=== PATIENT | male | born 1945 | race Caucasian/White ===

== ENCOUNTER 2021-03-03 20:27 | Inpatient (IN) ==
[2021-03-03 20:57] LABS: Basophils % 0.2 %; Eosinophils % 0.2 %; Hematocrit 44.5 % (37.5-50.1); Hemoglobin 14.8 g/dL (12.9-16.9); Immature Granulocytes % 1.4 % (0-4); Lymphocytes # 0.7 K/mcL (0.6-4.6); Lymphocytes % 5.7 %; Mean Corpuscular HGB Conc 33.3 g/dL (31.6-35.5); Mean Corpuscular Hemoglobin 31.6 pg (28.0-33.3); Mean Corpuscular Volume 95.1 fL (83.0-100.0); Mean Platelet Volume 11.7 fL (9.4-12.4); Monocytes # 0.9 K/mcL (0.0-1.3); Monocytes % 7.2 %; Neutrophils # 10.9 K/mcL (1.6-8.9); Platelet Count 163 K/mcL (140-400); Red Blood Count 4.68 M/mcL (4.19-5.50); Segmented Neutrophils % 85.3 %; White Blood Count 12.8 K/mcL (4.3-11.1)
[2021-03-03 21:05] LABS: INR 1.2; Prothrombin Time 13.4 Seconds (9.4-12.1)
[2021-03-03 21:07] LABS: Activated Partial Thrombo Time 29.4 Seconds (26.0-36.0)
[2021-03-03 21:15] LABS: Troponin I 0.03 ng/mL (< 0.04)
[2021-03-03 21:16] LABS: Alanine Aminotransferase 29 Units/L (7-52); Albumin 4.5 g/dL (3.5-5.7); Albumin/Globulin Ratio 1.8 (1.1-2.2); Alkaline Phosphatase 56 Units/L (34-104); Aspartate Amino Transferase 26 Units/L (13-39); BUN/Creatinine Ratio 18 (6-26); Bilirubin,Total 2.1 mg/dL (0.3-1.0); Blood Urea Nitrogen 20 mg/dL (8-23); Calcium 10.1 mg/dL (8.6-10.3); Carbon Dioxide 34 mEq/L (23-29); Chloride 94 mEq/L (98-107); Globulin 2.5 g/dL (2.4-3.5); Glucose 159 mg/dL (70-105); Magnesium 1.3 mg/dL (1.6-2.6); Osmolality,Calculated 288 (280-300); Phosphorous 3.2 mg/dL (2.7-4.5); Potassium 4.1 mEq/L (3.5-5.1); Sodium 136 mEq/L (136-145); eGFR For African Americans > 60 (> 60); eGFR For Non-African Americans > 60 (> 60)
[2021-03-03] MEDS ORDERED: *HR* LORazepam 2 MG/ML VIAL IVP ONE (21:42)
[2021-03-03] MEDS ORDERED: cefTRIAXone 1,000 MG in 0.9 % Sodium Chloride Mini Bag 100 ML IVPB ONE ×2 (22:25→23:13)
[2021-03-03] MEDS ORDERED: cefTRIAXone 1,000 MG in Water for inj. (sterile) 10 ML IVP ONE (23:00)
[2021-03-03] MEDS ORDERED: Naloxone 0.4 MG/ML INJ IVP PRN (23:13)
[2021-03-03] MEDS: 0.9 % Sodium Chloride 1,000 ML IVC SCH (23:44)
[2021-03-04] MEDS ORDERED: Haloperidol Lactate 5 MG/ML VIAL IVP ONE (00:06)
[2021-03-04] MEDS ORDERED: Ketorolac 30 MG/ML VIAL IVP ONE (00:08)
[2021-03-04 04:53] LABS: Basophils % 0.2 %; Hematocrit 37.4 % (37.5-50.1); Hemoglobin 12.6 g/dL (12.9-16.9); Immature Granulocytes % 0.9 % (0-4); Lymphocytes # 0.7 K/mcL (0.6-4.6); Lymphocytes % 3.8 %; Mean Corpuscular HGB Conc 33.7 g/dL (31.6-35.5); Mean Corpuscular Hemoglobin 31.8 pg (28.0-33.3); Mean Corpuscular Volume 94.4 fL (83.0-100.0); Monocytes # 1.8 K/mcL (0.0-1.3); Monocytes % 9.4 %; Neutrophils # 16.5 K/mcL (1.6-8.9); Platelet Count 144 K/mcL (140-400); Red Blood Count 3.96 M/mcL (4.19-5.50); Segmented Neutrophils % 85.7 %; White Blood Count 19.2 K/mcL (4.3-11.1)
[2021-03-04 05:06] LABS: BUN/Creatinine Ratio 19 (6-26); Blood Urea Nitrogen 24 mg/dL (8-23); Calcium 8.9 mg/dL (8.6-10.3); Carbon Dioxide 29 mEq/L (23-29); Chloride 98 mEq/L (98-107); Glucose 248 mg/dL (70-105); Osmolality,Calculated 292 (280-300); Potassium 3.9 mEq/L (3.5-5.1); Sodium 135 mEq/L (136-145); eGFR For African Americans > 60 (> 60); eGFR For Non-African Americans 55 (> 60)
[2021-03-04] MEDS ORDERED: cefTRIAXone 2,000 MG in Water for inj. (sterile) 20 ML IVP SCH (09:00)
[2021-03-04] MEDS ORDERED: NON-FORMULARY MEDICATION 1 EACH EACH (Omega-3s/Dha/Epa/Fish Oil [Fish Oil 1,200 Mg Softgel PO SCH (09:00)
[2021-03-04] MEDS: *HR* SitaGLIPtin 100 MG TABLET PO SCH (09:43)
[2021-03-04] MEDS: Multivit/Ca/Min/Fe/FA 1 TAB TABLET PO SCH (09:43)
[2021-03-04] MEDS: carvediloL 6.25 MG TABLET PO SCH ×2 (09:43→17:11)
[2021-03-04] MEDS: Furosemide 40 MG TABLET PO SCH (09:43)
[2021-03-04] MEDS: FATTY ACIDS PO SCH (09:44)
[2021-03-04] MEDS: Aspirin 81 MG TAB.CHEW PO SCH ×2 (09:44→20:31)
[2021-03-04] MEDS: OMEGA PO SCH (09:44)
[2021-03-04] MEDS: *HR* Glimepiride 4 MG TABLET PO SCH ×2 (09:44→17:11)
[2021-03-04] MEDS: *HR* Metformin 500 MG TABLET PO SCH ×2 (09:44→17:11)
[2021-03-04 13:12] LABS: Bilirubin,Urine Small (Negative); Blood,Urine Negative (Negative); Clarity,Urine Clear (Clear); Color,Urine Yellow (Yellow); Glucose,Urine (UA) 250 mg/dL (Normal); Ketones,Urine Negative (Negative); Leukocyte Esterase,Urine Negative (Negative); Nitrite,Urine Negative (Negative); Protein,Urine 30 mg/dL (Neg-Trace); Specific Gravity,Urine >= 1.030 (1.010-1.025); Urobilinogen,Urine Normal (Normal)
[2021-03-04 13:17] LABS: Bacteria,Urine Few per hpf (None-Few); Hyaline Casts,Urine Few per lpf (None Seen)
[2021-03-04] MEDS ORDERED: *HR* Dextrose 50 % in Water (Vial) 50 ML VIAL IVP PRN (13:52)
[2021-03-04] MEDS ORDERED: D5% in Water 1,000 ML IVC PRN (13:52)
[2021-03-04] MEDS ORDERED: Dextrose Gel 15 GM/37.5 ML TUBE PO PRN ×2 (13:52)
[2021-03-04] MEDS: Vancomycin 1,250 MG/262.5 ML IV.SOLN IVPB SCH (14:46)
[2021-03-04] MEDS: Piperacillin/Tazobactam 3.375 GM in 0.9 % Sodium Chloride Mini Bag 100 ML IVPB SCH ×2 (16:47→23:35)
[2021-03-04] MEDS: Insulin LISPRO 300 UNITS/3 ML VIAL SUBQ SCH ×2 (17:11→20:32)
[2021-03-05] MEDS: Vancomycin 1,250 MG/262.5 ML IV.SOLN IVPB SCH ×2 (00:26→13:43)
[2021-03-05] MEDS: 0.9 % Sodium Chloride 1,000 ML IVC SCH (02:33)
[2021-03-05 06:26] LABS: Basophils % 0.1 %; Eosinophils % 0.2 %; Hematocrit 33.4 % (37.5-50.1); Immature Granulocytes % 1.3 % (0-4); Lymphocytes # 0.8 K/mcL (0.6-4.6); Lymphocytes % 5.8 %; Mean Corpuscular HGB Conc 32.9 g/dL (31.6-35.5); Mean Corpuscular Hemoglobin 31.5 pg (28.0-33.3); Mean Corpuscular Volume 95.7 fL (83.0-100.0); Mean Platelet Volume 11.9 fL (9.4-12.4); Monocytes # 1.3 K/mcL (0.0-1.3); Monocytes % 9.6 %; Neutrophils # 11.2 K/mcL (1.6-8.9); Platelet Count 122 K/mcL (140-400); Red Blood Count 3.49 M/mcL (4.19-5.50); Red Cell Distribution Width 14.4 % (11.5-14.5); White Blood Count 13.5 K/mcL (4.3-11.1)
[2021-03-05 07:09] LABS: Alanine Aminotransferase 17 Units/L (7-52); Albumin 2.8 g/dL (3.5-5.7); Albumin/Globulin Ratio 1.2 (1.1-2.2); Alkaline Phosphatase 40 Units/L (34-104); Aspartate Amino Transferase 18 Units/L (13-39); BUN/Creatinine Ratio 19 (6-26); Bilirubin,Total 1.4 mg/dL (0.3-1.0); Blood Urea Nitrogen 25 mg/dL (8-23); Calcium 8.3 mg/dL (8.6-10.3); Carbon Dioxide 31 mEq/L (23-29); Chloride 98 mEq/L (98-107); Globulin 2.4 g/dL (2.4-3.5); Glucose 67 mg/dL (70-105); Osmolality,Calculated 285 (280-300); Potassium 3.5 mEq/L (3.5-5.1); Sodium 136 mEq/L (136-145); Total Protein 5.2 g/dL (6.4-8.9); eGFR For African Americans > 60 (> 60); eGFR For Non-African Americans 53 (> 60)
[2021-03-05] MEDS: Multivit/Ca/Min/Fe/FA 1 TAB TABLET PO SCH (09:04)
[2021-03-05] MEDS: Insulin LISPRO 300 UNITS/3 ML VIAL SUBQ SCH ×4 (09:04→20:45)
[2021-03-05] MEDS: Aspirin 81 MG TAB.CHEW PO SCH ×2 (09:05→20:46)
[2021-03-05] MEDS: *HR* Metformin 500 MG TABLET PO SCH ×2 (09:05→16:44)
[2021-03-05] MEDS: *HR* Glimepiride 4 MG TABLET PO SCH ×2 (09:05→16:45)
[2021-03-05] MEDS: *HR* SitaGLIPtin 100 MG TABLET PO SCH (09:06)
[2021-03-05] MEDS: carvediloL 6.25 MG TABLET PO SCH ×2 (09:06→16:45)
[2021-03-05] MEDS: Piperacillin/Tazobactam 3.375 GM in 0.9 % Sodium Chloride Mini Bag 100 ML IVPB SCH ×3 (09:10→23:33)
[2021-03-05 10:06] LABS: Estimated Average Glucose 171 mg/dl; Hemoglobin A1C 7.6 %
[2021-03-05] MEDS: OMEGA PO SCH (11:47)
[2021-03-05] MEDS: FATTY ACIDS PO SCH (11:47)
[2021-03-06] MEDS: Insulin LISPRO 300 UNITS/3 ML VIAL SUBQ SCH ×4 (08:15→22:09)
[2021-03-06] MEDS: Aspirin 81 MG TAB.CHEW PO SCH ×2 (08:57→22:08)
[2021-03-06] MEDS: *HR* Metformin 500 MG TABLET PO SCH ×2 (08:58→16:51)
[2021-03-06] MEDS: Multivit/Ca/Min/Fe/FA 1 TAB TABLET PO SCH (08:58)
[2021-03-06] MEDS: Furosemide 40 MG TABLET PO SCH (08:58)
[2021-03-06] MEDS: *HR* Glimepiride 4 MG TABLET PO SCH ×2 (08:58→16:51)
[2021-03-06] MEDS: carvediloL 6.25 MG TABLET PO SCH ×2 (08:58→16:50)
[2021-03-06] MEDS: *HR* SitaGLIPtin 100 MG TABLET PO SCH (08:58)
[2021-03-06] MEDS: OMEGA PO SCH (08:59)
[2021-03-06] MEDS: Piperacillin/Tazobactam 3.375 GM in 0.9 % Sodium Chloride Mini Bag 100 ML IVPB SCH ×2 (08:59→16:53)
[2021-03-06] MEDS: FATTY ACIDS PO SCH (08:59)
[2021-03-06 11:45] LABS: BUN/Creatinine Ratio 16 (6-26); Blood Urea Nitrogen 17 mg/dL (8-23); Calcium 8.4 mg/dL (8.6-10.3); Carbon Dioxide 27 mEq/L (23-29); Chloride 102 mEq/L (98-107); Glucose 172 mg/dL (70-105); Osmolality,Calculated 288 (280-300); Potassium 3.8 mEq/L (3.5-5.1); Sodium 136 mEq/L (136-145); eGFR For African Americans > 60 (> 60); eGFR For Non-African Americans > 60 (> 60)
[2021-03-06 11:47] LABS: Basophils % 0.1 %; Eosinophils % 0.5 %; Hematocrit 33.5 % (37.5-50.1); Hemoglobin 11.1 g/dL (12.9-16.9); Immature Granulocytes % 1.3 % (0-4); Lymphocytes # 0.6 K/mcL (0.6-4.6); Lymphocytes % 7.4 %; Mean Corpuscular HGB Conc 33.1 g/dL (31.6-35.5); Mean Corpuscular Hemoglobin 31.9 pg (28.0-33.3); Mean Corpuscular Volume 96.3 fL (83.0-100.0); Mean Platelet Volume 11.7 fL (9.4-12.4); Monocytes # 0.6 K/mcL (0.0-1.3); Monocytes % 7.2 %; Neutrophils # 6.7 K/mcL (1.6-8.9); Platelet Count 119 K/mcL (140-400); Red Blood Count 3.48 M/mcL (4.19-5.50); Red Cell Distribution Width 14.3 % (11.5-14.5); Segmented Neutrophils % 83.5 %
[2021-03-07] MEDS: Piperacillin/Tazobactam 3.375 GM in 0.9 % Sodium Chloride Mini Bag 100 ML IVPB SCH ×3 (00:03→17:39)
[2021-03-07 05:58] LABS: Basophils % 0.4 %; Eosinophils # 0.1 K/mcL (0.0-0.6); Eosinophils % 1.1 %; Hematocrit 35.2 % (37.5-50.1); Hemoglobin 11.4 g/dL (12.9-16.9); Immature Granulocytes % 1.8 % (0-4); Lymphocytes # 0.9 K/mcL (0.6-4.6); Lymphocytes % 13.2 %; Mean Corpuscular HGB Conc 32.4 g/dL (31.6-35.5); Mean Corpuscular Hemoglobin 31.5 pg (28.0-33.3); Mean Corpuscular Volume 97.2 fL (83.0-100.0); Mean Platelet Volume 12.1 fL (9.4-12.4); Monocytes # 0.6 K/mcL (0.0-1.3); Monocytes % 8.3 %; Neutrophils # 5.4 K/mcL (1.6-8.9); Platelet Count 136 K/mcL (140-400); Red Blood Count 3.62 M/mcL (4.19-5.50); Segmented Neutrophils % 75.2 %; White Blood Count 7.1 K/mcL (4.3-11.1)
[2021-03-07 06:16] LABS: BUN/Creatinine Ratio 14 (6-26); Blood Urea Nitrogen 15 mg/dL (8-23); Calcium 8.5 mg/dL (8.6-10.3); Carbon Dioxide 31 mEq/L (23-29); Chloride 101 mEq/L (98-107); Glucose 142 mg/dL (70-105); Osmolality,Calculated 289 (280-300); Potassium 3.6 mEq/L (3.5-5.1); Sodium 138 mEq/L (136-145); eGFR For African Americans > 60 (> 60); eGFR For Non-African Americans > 60 (> 60)
[2021-03-07] MEDS: *HR* SitaGLIPtin 100 MG TABLET PO SCH (07:38)
[2021-03-07] MEDS: Multivit/Ca/Min/Fe/FA 1 TAB TABLET PO SCH (07:38)
[2021-03-07] MEDS: *HR* Metformin 500 MG TABLET PO SCH ×2 (07:39→17:40)
[2021-03-07] MEDS: *HR* Glimepiride 4 MG TABLET PO SCH ×2 (07:39→17:39)
[2021-03-07] MEDS: carvediloL 6.25 MG TABLET PO SCH ×2 (07:39→17:39)
[2021-03-07] MEDS: Aspirin 81 MG TAB.CHEW PO SCH ×2 (07:39→21:47)
[2021-03-07] MEDS: FATTY ACIDS PO SCH (07:41)
[2021-03-07] MEDS: OMEGA PO SCH (07:41)
[2021-03-07] MEDS: Insulin LISPRO 300 UNITS/3 ML VIAL SUBQ SCH ×4 (07:41→21:39)
[2021-03-08] MEDS: Piperacillin/Tazobactam 3.375 GM in 0.9 % Sodium Chloride Mini Bag 100 ML IVPB SCH ×3 (00:06→17:25)
[2021-03-08] MEDS: Insulin LISPRO 300 UNITS/3 ML VIAL SUBQ SCH ×4 (08:28→20:33)
[2021-03-08] MEDS: Aspirin 81 MG TAB.CHEW PO SCH ×2 (08:29→20:39)
[2021-03-08] MEDS: carvediloL 6.25 MG TABLET PO SCH ×2 (08:29→17:25)
[2021-03-08] MEDS: Multivit/Ca/Min/Fe/FA 1 TAB TABLET PO SCH (08:29)
[2021-03-08] MEDS: *HR* SitaGLIPtin 100 MG TABLET PO SCH (08:29)
[2021-03-08] MEDS: *HR* Glimepiride 4 MG TABLET PO SCH ×2 (08:31→17:25)
[2021-03-08] MEDS: *HR* Metformin 500 MG TABLET PO SCH ×2 (08:35→17:25)
[2021-03-09] MEDS: Piperacillin/Tazobactam 3.375 GM in 0.9 % Sodium Chloride Mini Bag 100 ML IVPB SCH ×4 (00:10→23:51)
[2021-03-09] MEDS: Vancomycin 1,750 MG/517.5 ML IV.SOLN IVPB SCH (00:44)
[2021-03-09 04:52] LABS: eGFR For African Americans > 60 (> 60); eGFR For Non-African Americans > 60 (> 60)
[2021-03-09] MEDS: Furosemide 40 MG TABLET PO SCH (09:27)
[2021-03-09] MEDS: Aspirin 81 MG TAB.CHEW PO SCH ×2 (09:27→21:34)
[2021-03-09] MEDS: Multivit/Ca/Min/Fe/FA 1 TAB TABLET PO SCH (09:27)
[2021-03-09] MEDS: *HR* SitaGLIPtin 100 MG TABLET PO SCH (09:27)
[2021-03-09] MEDS: carvediloL 6.25 MG TABLET PO SCH ×2 (09:27→17:44)
[2021-03-09] MEDS: *HR* Metformin 500 MG TABLET PO SCH ×2 (09:28→17:43)
[2021-03-09] MEDS: Insulin LISPRO 300 UNITS/3 ML VIAL SUBQ SCH ×4 (09:28→21:32)
[2021-03-09] MEDS: *HR* Glimepiride 4 MG TABLET PO SCH ×2 (09:28→17:43)
[2021-03-10] MEDS: Vancomycin 1,750 MG/517.5 ML IV.SOLN IVPB SCH (00:52)
[2021-03-10] MEDS: Insulin LISPRO 300 UNITS/3 ML VIAL SUBQ SCH ×2 (09:34→11:58)
[2021-03-10] MEDS: Piperacillin/Tazobactam 3.375 GM in 0.9 % Sodium Chloride Mini Bag 100 ML IVPB SCH (09:35)
[2021-03-10] MEDS: *HR* Metformin 500 MG TABLET PO SCH (09:36)
[2021-03-10] MEDS: *HR* SitaGLIPtin 100 MG TABLET PO SCH (09:36)
[2021-03-10] MEDS: Aspirin 81 MG TAB.CHEW PO SCH (09:36)
[2021-03-10] MEDS: Multivit/Ca/Min/Fe/FA 1 TAB TABLET PO SCH (09:36)
[2021-03-10] MEDS: *HR* Glimepiride 4 MG TABLET PO SCH (09:37)
[2021-03-10] MEDS: carvediloL 6.25 MG TABLET PO SCH (09:37)
[2021-03-10 11:11] VITALS: BP 113/51; PULSE 99; RESP 17; TEMP 97.9; O2SAT 97
== END 2021-03-10 14:04 | disposition other institution (70) | DRG 603 ==
LOC: EMEROOGRE 20:27 → INPGRE 20:27 → SUATTDRO 22:59 → INPGRE 23:13
PROVIDERS: ADMIT Student in an Organized Health Care Education/Training Program; ATTEND Family Medicine

== ENCOUNTER 2021-03-10 14:29 | Inpatient (IN) ==
[2021-03-10] MEDS ORDERED: *HR* Dextrose 50 % in Water (Vial) 50 ML VIAL IVP PRN (15:56)
[2021-03-10] MEDS ORDERED: Dextrose Gel 15 GM/37.5 ML TUBE PO PRN ×2 (15:56)
[2021-03-10] MEDS ORDERED: D5% in Water 1,000 ML IVC PRN (15:56)
[2021-03-10] MEDS: *HR* Metformin 500 MG TABLET PO SCH (17:45)
[2021-03-10] MEDS: carvediloL 6.25 MG TABLET PO SCH (17:45)
[2021-03-10] MEDS: *HR* Glimepiride 4 MG TABLET PO SCH (17:45)
[2021-03-10] MEDS: Piperacillin/Tazobactam 3.375 GM in 0.9 % Sodium Chloride Mini Bag 100 ML IVPB SCH (17:45)
[2021-03-10] MEDS: Insulin LISPRO 300 UNITS/3 ML VIAL SUBQ SCH ×2 (17:47→21:20)
[2021-03-10] MEDS: Aspirin Enteric Coated 81 MG Tablet PO SCH (21:23)
[2021-03-11] MEDS: Piperacillin/Tazobactam 3.375 GM in 0.9 % Sodium Chloride Mini Bag 100 ML IVPB SCH ×3 (00:53→16:39)
[2021-03-11] MEDS: Vancomycin 1,750 MG/517.5 ML IV.SOLN IVPB SCH (00:58)
[2021-03-11] MEDS: Insulin LISPRO 300 UNITS/3 ML VIAL SUBQ SCH ×4 (07:31→21:13)
[2021-03-11] MEDS: (Omega-3s/Dha/Epa/Fish Oil [Fish Oil 1,200 Mg Softgel PO SCH (08:27)
[2021-03-11] MEDS: *HR* Glimepiride 4 MG TABLET PO SCH ×2 (08:28→16:40)
[2021-03-11] MEDS: Aspirin Enteric Coated 81 MG Tablet PO SCH ×2 (08:28→21:21)
[2021-03-11] MEDS: *HR* Metformin 500 MG TABLET PO SCH ×2 (08:28→16:40)
[2021-03-11] MEDS: *HR* SitaGLIPtin 100 MG TABLET PO SCH (08:28)
[2021-03-11] MEDS: carvediloL 6.25 MG TABLET PO SCH ×2 (08:29→16:39)
[2021-03-11] MEDS: Furosemide 40 MG TABLET PO SCH (08:29)
[2021-03-11] MEDS: Multivit/Ca/Min/Fe/FA 1 TAB TABLET PO SCH (08:29)
[2021-03-12] MEDS: Piperacillin/Tazobactam 3.375 GM in 0.9 % Sodium Chloride Mini Bag 100 ML IVPB SCH ×2 (00:16→08:22)
[2021-03-12] MEDS: Vancomycin 1,750 MG/517.5 ML IV.SOLN IVPB SCH (00:19)
[2021-03-12 05:36] LABS: BUN/Creatinine Ratio 16 (6-26); Blood Urea Nitrogen 14 mg/dL (8-23); Calcium 8.1 mg/dL (8.6-10.3); Carbon Dioxide 31 mEq/L (23-29); Chloride 103 mEq/L (98-107); Glucose 105 mg/dL (70-105); Magnesium 1.5 mg/dL (1.6-2.6); Osmolality,Calculated 289 (280-300); Potassium 3.8 mEq/L (3.5-5.1); Sodium 139 mEq/L (136-145); eGFR For African Americans > 60 (> 60); eGFR For Non-African Americans > 60 (> 60)
[2021-03-12 05:38] LABS: Hematocrit 28.2 % (37.5-50.1); Mean Corpuscular HGB Conc 31.9 g/dL (31.6-35.5); Mean Corpuscular Volume 97.2 fL (83.0-100.0); Mean Platelet Volume 10.9 fL (9.4-12.4); Red Cell Distribution Width 13.5 % (11.5-14.5); White Blood Count 6.4 K/mcL (4.3-11.1)
[2021-03-12 05:50] LABS: Platelet Count 208 K/mcL (140-400)
[2021-03-12] MEDS: Aspirin Enteric Coated 81 MG Tablet PO SCH ×2 (08:21→22:05)
[2021-03-12] MEDS: *HR* Metformin 500 MG TABLET PO SCH ×2 (08:21→17:07)
[2021-03-12] MEDS: carvediloL 6.25 MG TABLET PO SCH ×2 (08:21→17:07)
[2021-03-12] MEDS: *HR* SitaGLIPtin 100 MG TABLET PO SCH (08:22)
[2021-03-12] MEDS: Multivit/Ca/Min/Fe/FA 1 TAB TABLET PO SCH (08:22)
[2021-03-12] MEDS: *HR* Glimepiride 4 MG TABLET PO SCH ×2 (08:22→17:12)
[2021-03-12] MEDS: Insulin LISPRO 300 UNITS/3 ML VIAL SUBQ SCH ×4 (08:27→21:56)
[2021-03-12] MEDS: (Omega-3s/Dha/Epa/Fish Oil [Fish Oil 1,200 Mg Softgel PO SCH (08:50)
[2021-03-12] MEDS: Doxycycline 100 MG CAPSULE PO SCH (17:07)
[2021-03-13] MEDS: Doxycycline 100 MG CAPSULE PO SCH ×2 (06:43→22:47)
[2021-03-13] MEDS: Furosemide 40 MG TABLET PO SCH (08:47)
[2021-03-13] MEDS: carvediloL 6.25 MG TABLET PO SCH ×2 (08:47→17:16)
[2021-03-13] MEDS: *HR* Metformin 500 MG TABLET PO SCH ×2 (08:48→17:16)
[2021-03-13] MEDS: Multivit/Ca/Min/Fe/FA 1 TAB TABLET PO SCH (08:48)
[2021-03-13] MEDS: *HR* Glimepiride 4 MG TABLET PO SCH ×2 (08:48→17:16)
[2021-03-13] MEDS: *HR* SitaGLIPtin 100 MG TABLET PO SCH (08:48)
[2021-03-13] MEDS: Aspirin Enteric Coated 81 MG Tablet PO SCH ×2 (08:48→22:47)
[2021-03-13] MEDS: Insulin LISPRO 300 UNITS/3 ML VIAL SUBQ SCH ×4 (08:53→22:50)
[2021-03-14 05:56] LABS: Basophils # 0.1 K/mcL (0.0-0.2); Eosinophils # 0.1 K/mcL (0.0-0.6); Hematocrit 28.7 % (37.5-50.1); Hemoglobin 9.1 g/dL (12.9-16.9); Immature Granulocytes % 1.7 % (0-4); Mean Corpuscular HGB Conc 31.7 g/dL (31.6-35.5); Mean Corpuscular Hemoglobin 31.1 pg (28.0-33.3); Mean Platelet Volume 10.8 fL (9.4-12.4); Monocytes # 0.6 K/mcL (0.0-1.3); Neutrophils # 3.7 K/mcL (1.6-8.9); Platelet Count 238 K/mcL (140-400); Red Blood Count 2.93 M/mcL (4.19-5.50); Red Cell Distribution Width 13.4 % (11.5-14.5); White Blood Count 5.9 K/mcL (4.3-11.1)
[2021-03-14 06:11] LABS: BUN/Creatinine Ratio 14 (6-26); Blood Urea Nitrogen 11 mg/dL (8-23); Calcium 8.4 mg/dL (8.6-10.3); Carbon Dioxide 32 mEq/L (23-29); Chloride 101 mEq/L (98-107); Glucose 81 mg/dL (70-105); Osmolality,Calculated 288 (280-300); Potassium 3.6 mEq/L (3.5-5.1); Sodium 140 mEq/L (136-145); eGFR For African Americans > 60 (> 60); eGFR For Non-African Americans > 60 (> 60)
[2021-03-14] MEDS: Doxycycline 100 MG CAPSULE PO SCH ×2 (06:29→16:48)
[2021-03-14 08:26] LABS: Platelet Estimate Normal (Normal); Reactive Lymphocytes Present (Not Present)
[2021-03-14] MEDS: Insulin LISPRO 300 UNITS/3 ML VIAL SUBQ SCH ×4 (08:33→21:09)
[2021-03-14 09:08] LABS: Basophils % 0.9 %; Eosinophils % 1.5 %; Lymphocytes # 1.5 K/mcL (0.6-4.6); Lymphocytes % 24.5 %; Monocytes % 9.4 %
[2021-03-14] MEDS: *HR* SitaGLIPtin 100 MG TABLET PO SCH (09:11)
[2021-03-14] MEDS: Multivit/Ca/Min/Fe/FA 1 TAB TABLET PO SCH (09:11)
[2021-03-14] MEDS: Aspirin Enteric Coated 81 MG Tablet PO SCH ×2 (09:11→21:09)
[2021-03-14] MEDS: *HR* Metformin 500 MG TABLET PO SCH ×2 (09:11→16:48)
[2021-03-14] MEDS: carvediloL 6.25 MG TABLET PO SCH ×2 (09:11→16:49)
[2021-03-14] MEDS: *HR* Glimepiride 4 MG TABLET PO SCH ×2 (09:12→16:48)
[2021-03-15] MEDS: Doxycycline 100 MG CAPSULE PO SCH ×2 (04:51→17:24)
[2021-03-15] MEDS: Multivit/Ca/Min/Fe/FA 1 TAB TABLET PO SCH (08:22)
[2021-03-15] MEDS: *HR* Metformin 500 MG TABLET PO SCH ×2 (08:22→17:24)
[2021-03-15] MEDS: Aspirin Enteric Coated 81 MG Tablet PO SCH ×2 (08:24→20:04)
[2021-03-15] MEDS: carvediloL 6.25 MG TABLET PO SCH ×2 (08:25→17:23)
[2021-03-15] MEDS: *HR* Glimepiride 4 MG TABLET PO SCH ×2 (08:25→17:24)
[2021-03-15] MEDS: *HR* SitaGLIPtin 100 MG TABLET PO SCH (08:25)
[2021-03-15] MEDS: Insulin LISPRO 300 UNITS/3 ML VIAL SUBQ SCH ×4 (08:31→20:01)
[2021-03-16] MEDS: Doxycycline 100 MG CAPSULE PO SCH ×2 (06:25→17:30)
[2021-03-16] MEDS: Insulin LISPRO 300 UNITS/3 ML VIAL SUBQ SCH ×4 (08:43→20:24)
[2021-03-16] MEDS: *HR* SitaGLIPtin 100 MG TABLET PO SCH (08:50)
[2021-03-16] MEDS: carvediloL 6.25 MG TABLET PO SCH ×2 (08:50→17:29)
[2021-03-16] MEDS: Multivit/Ca/Min/Fe/FA 1 TAB TABLET PO SCH (08:50)
[2021-03-16] MEDS: *HR* Glimepiride 4 MG TABLET PO SCH ×2 (08:50→17:29)
[2021-03-16] MEDS: Aspirin Enteric Coated 81 MG Tablet PO SCH ×2 (08:50→20:23)
[2021-03-16] MEDS: Furosemide 40 MG TABLET PO SCH (08:50)
[2021-03-16] MEDS: *HR* Metformin 500 MG TABLET PO SCH ×2 (08:50→17:30)
[2021-03-17] MEDS: Doxycycline 100 MG CAPSULE PO SCH ×2 (05:35→16:08)
[2021-03-17] MEDS: Aspirin Enteric Coated 81 MG Tablet PO SCH ×2 (08:02→20:30)
[2021-03-17] MEDS: Multivit/Ca/Min/Fe/FA 1 TAB TABLET PO SCH (08:03)
[2021-03-17] MEDS: *HR* Glimepiride 4 MG TABLET PO SCH ×2 (08:03→16:08)
[2021-03-17] MEDS: *HR* Metformin 500 MG TABLET PO SCH ×2 (08:03→16:08)
[2021-03-17] MEDS: *HR* SitaGLIPtin 100 MG TABLET PO SCH (08:03)
[2021-03-17] MEDS: carvediloL 6.25 MG TABLET PO SCH ×2 (08:03→16:08)
[2021-03-17] MEDS: Insulin LISPRO 300 UNITS/3 ML VIAL SUBQ SCH ×3 (12:32→21:50)
[2021-03-18] MEDS: Doxycycline 100 MG CAPSULE PO SCH ×2 (04:26→17:25)
[2021-03-18 05:07] LABS: White Blood Count 5.1 K/mcL (4.3-11.1)
[2021-03-18 05:08] LABS: Basophils # 0.1 K/mcL (0.0-0.2); Basophils % 1.2 %; Eosinophils # 0.1 K/mcL (0.0-0.6); Eosinophils % 1.6 %; Immature Granulocytes % 1.8 % (0-4); Lymphocytes # 1.5 K/mcL (0.6-4.6); Lymphocytes % 30.5 %; Mean Corpuscular HGB Conc 32.1 g/dL (31.6-35.5); Mean Corpuscular Hemoglobin 30.8 pg (28.0-33.3); Mean Corpuscular Volume 95.9 fL (83.0-100.0); Mean Platelet Volume 10.7 fL (9.4-12.4); Monocytes # 0.6 K/mcL (0.0-1.3); Monocytes % 11.9 %; Neutrophils # 2.7 K/mcL (1.6-8.9); Platelet Count 241 K/mcL (140-400); Red Blood Count 2.92 M/mcL (4.19-5.50); Red Cell Distribution Width 13.6 % (11.5-14.5)
[2021-03-18 05:13] LABS: Platelet Estimate Normal (Normal)
[2021-03-18 05:20] LABS: BUN/Creatinine Ratio 17 (6-26); Blood Urea Nitrogen 14 mg/dL (8-23); Calcium 8.7 mg/dL (8.6-10.3); Carbon Dioxide 30 mEq/L (23-29); Chloride 101 mEq/L (98-107); Glucose 70 mg/dL (70-105); Osmolality,Calculated 283 (280-300); Potassium 3.7 mEq/L (3.5-5.1); Sodium 137 mEq/L (136-145); eGFR For African Americans > 60 (> 60); eGFR For Non-African Americans > 60 (> 60)
[2021-03-18] MEDS: Aspirin Enteric Coated 81 MG Tablet PO SCH ×2 (08:28→21:28)
[2021-03-18] MEDS: Insulin LISPRO 300 UNITS/3 ML VIAL SUBQ SCH ×4 (08:28→21:28)
[2021-03-18] MEDS: Multivit/Ca/Min/Fe/FA 1 TAB TABLET PO SCH (08:29)
[2021-03-18] MEDS: *HR* Metformin 500 MG TABLET PO SCH ×2 (08:29→17:25)
[2021-03-18] MEDS: *HR* SitaGLIPtin 100 MG TABLET PO SCH (08:29)
[2021-03-18] MEDS: carvediloL 6.25 MG TABLET PO SCH ×2 (08:29→17:25)
[2021-03-18] MEDS: *HR* Glimepiride 4 MG TABLET PO SCH ×2 (08:30→17:26)
[2021-03-18] MEDS: Furosemide 40 MG TABLET PO SCH (08:30)
[2021-03-19] MEDS: Doxycycline 100 MG CAPSULE PO SCH ×2 (05:30→16:24)
[2021-03-19] MEDS: Aspirin Enteric Coated 81 MG Tablet PO SCH ×2 (06:48→21:50)
[2021-03-19] MEDS: *HR* Metformin 500 MG TABLET PO SCH ×2 (06:49→16:24)
[2021-03-19] MEDS: *HR* Glimepiride 4 MG TABLET PO SCH ×2 (06:49→16:24)
[2021-03-19] MEDS: Multivit/Ca/Min/Fe/FA 1 TAB TABLET PO SCH (06:49)
[2021-03-19] MEDS: *HR* SitaGLIPtin 100 MG TABLET PO SCH (06:49)
[2021-03-19] MEDS: carvediloL 6.25 MG TABLET PO SCH ×2 (06:50→16:24)
[2021-03-19] MEDS: EPA PO SCH (06:51)
[2021-03-19] MEDS: DHA PO SCH (06:51)
[2021-03-19] MEDS: FISH OIL PO SCH (06:51)
[2021-03-19] MEDS: Insulin LISPRO 300 UNITS/3 ML VIAL SUBQ SCH ×4 (08:32→21:29)
[2021-03-20] MEDS: Doxycycline 100 MG CAPSULE PO SCH (05:34)
[2021-03-20 06:59] VITALS: BP 106/58; PULSE 72; RESP 17; TEMP 98.4; O2SAT 95
[2021-03-20] MEDS: *HR* Glimepiride 4 MG TABLET PO SCH (07:58)
[2021-03-20] MEDS: carvediloL 6.25 MG TABLET PO SCH (07:58)
[2021-03-20] MEDS: *HR* SitaGLIPtin 100 MG TABLET PO SCH (07:58)
[2021-03-20] MEDS: Multivit/Ca/Min/Fe/FA 1 TAB TABLET PO SCH (07:58)
[2021-03-20] MEDS: Aspirin Enteric Coated 81 MG Tablet PO SCH (07:59)
[2021-03-20] MEDS: DHA PO SCH (07:59)
[2021-03-20] MEDS: EPA PO SCH (07:59)
[2021-03-20] MEDS: FISH OIL PO SCH (07:59)
[2021-03-20] MEDS: Insulin LISPRO 300 UNITS/3 ML VIAL SUBQ SCH ×2 (07:59→11:53)
[2021-03-20] MEDS: *HR* Metformin 500 MG TABLET PO SCH (07:59)
[2021-03-20] MEDS: Furosemide 40 MG TABLET PO SCH (07:59)
== END 2021-03-20 14:12 | disposition home health service (06) | DRG 945 ==
LOC: INPGRE 14:45
PROVIDERS: ADMIT Family Medicine; ATTEND Family Medicine

== ENCOUNTER 2021-09-02 10:20 | Inpatient (IN) ==
[2021-09-02] MEDS: carvediloL 6.25 MG TABLET PO SCH (17:15)
[2021-09-02] MEDS: *HR* Rivaroxaban 10 MG TABLET PO SCH (17:15)
[2021-09-02] MEDS ORDERED: *HR* Amiodarone 200 MG TABLET PO SCH (21:00)
[2021-09-02] MEDS: Melatonin 3 MG TABLET PO SCH (21:23)
[2021-09-02] MEDS ORDERED: Dextrose Gel 15 GM/37.5 ML TUBE PO PRN ×2 (21:37)
[2021-09-02] MEDS ORDERED: D5% in Water 1,000 ML IVC PRN (21:37)
[2021-09-02] MEDS ORDERED: *HR* Dextrose 50 % in Water (Syg) 50 ML SYRINGE IVP PRN (21:37)
[2021-09-02] MEDS: Insulin LISPRO 300 UNITS/3 ML VIAL SUBQ SCH (22:14)
[2021-09-02] MEDS: Nystatin POWDER 30 GM BOTTLE TP SCH (22:15)
[2021-09-03 07:35] LABS: Basophils % 0.9 %; Eosinophils # 0.3 K/mcL (0.0-0.6); Eosinophils % 5.7 %; Hematocrit 30.3 % (37.5-50.1); Hemoglobin 9.6 g/dL (12.9-16.9); Immature Granulocytes % 0.9 % (0-4); Lymphocytes # 0.9 K/mcL (0.6-4.6); Mean Corpuscular HGB Conc 31.7 g/dL (31.6-35.5); Mean Corpuscular Hemoglobin 30.6 pg (28.0-33.3); Mean Corpuscular Volume 96.5 fL (83.0-100.0); Mean Platelet Volume 9.8 fL (9.4-12.4); Monocytes # 0.5 K/mcL (0.0-1.3); Monocytes % 11.2 %; Neutrophils # 2.8 K/mcL (1.6-8.9); Platelet Count 150 K/mcL (140-400); Red Blood Count 3.14 M/mcL (4.19-5.50); Red Cell Distribution Width 16.7 % (11.5-14.5); Segmented Neutrophils % 61.3 %; White Blood Count 4.6 K/mcL (4.3-11.1)
[2021-09-03] MEDS: Insulin LISPRO 300 UNITS/3 ML VIAL SUBQ SCH ×4 (08:02→22:48)
[2021-09-03 08:08] LABS: Alanine Aminotransferase 29 Units/L (7-52); Albumin 3.7 g/dL (3.5-5.7); Albumin/Globulin Ratio 1.9 (1.1-2.2); Alkaline Phosphatase 52 Units/L (34-104); Aspartate Amino Transferase 29 Units/L (13-39); BUN/Creatinine Ratio 18 (6-26); Bilirubin,Total 1.2 mg/dL (0.3-1.0); Blood Urea Nitrogen 21 mg/dL (8-23); Calcium 9.2 mg/dL (8.6-10.3); Carbon Dioxide 31 mEq/L (23-29); Chloride 100 mEq/L (98-107); Glucose 148 mg/dL (70-105); Magnesium 1.8 mg/dL (1.6-2.6); Osmolality,Calculated 294 (280-300); Potassium 3.4 mEq/L (3.5-5.1); Sodium 139 mEq/L (136-145); Total Protein 5.7 g/dL (6.4-8.9); eGFR For African Americans > 60 (> 60); eGFR For Non-African Americans 59 (> 60)
[2021-09-03] MEDS: Furosemide 40 MG TABLET PO SCH (10:21)
[2021-09-03] MEDS: *HR* Metformin 500 MG TABLET PO SCH (10:21)
[2021-09-03] MEDS: carvediloL 6.25 MG TABLET PO SCH ×2 (10:21→17:23)
[2021-09-03] MEDS: Aspirin 81 MG TAB.CHEW PO SCH (10:21)
[2021-09-03] MEDS: *HR* SitaGLIPtin 100 MG TABLET PO SCH (10:21)
[2021-09-03] MEDS: *HR* Glimepiride 4 MG TABLET PO SCH (10:22)
[2021-09-03] MEDS: *HR* Amiodarone 200 MG TABLET PO SCH (10:22)
[2021-09-03] MEDS: Nystatin POWDER 30 GM BOTTLE TP SCH ×2 (10:22→22:50)
[2021-09-03 15:47] LABS: Estimated Average Glucose 128 mg/dl; Hemoglobin A1C 6.1 %
[2021-09-03] MEDS: *HR* Rivaroxaban 10 MG TABLET PO SCH (17:22)
[2021-09-03] MEDS: Melatonin 3 MG TABLET PO SCH (22:47)
[2021-09-04] MEDS: Insulin LISPRO 300 UNITS/3 ML VIAL SUBQ SCH ×4 (07:31→20:55)
[2021-09-04] MEDS: *HR* Metformin 500 MG TABLET PO SCH (09:27)
[2021-09-04] MEDS: *HR* SitaGLIPtin 100 MG TABLET PO SCH (09:28)
[2021-09-04] MEDS: carvediloL 6.25 MG TABLET PO SCH ×2 (09:28→17:05)
[2021-09-04] MEDS: Furosemide 40 MG TABLET PO SCH (09:29)
[2021-09-04] MEDS: *HR* Glimepiride 4 MG TABLET PO SCH (09:30)
[2021-09-04] MEDS: Aspirin 81 MG TAB.CHEW PO SCH (09:30)
[2021-09-04] MEDS: Nystatin POWDER 30 GM BOTTLE TP SCH ×2 (09:38→20:49)
[2021-09-04] MEDS: *HR* Amiodarone 200 MG TABLET PO SCH (09:53)
[2021-09-04] MEDS: polyethylene glycoL 3350 17 GM POWD.PACK PO SCH (10:51)
[2021-09-04] MEDS: *HR* Rivaroxaban 10 MG TABLET PO SCH (17:05)
[2021-09-04] MEDS: Melatonin 3 MG TABLET PO SCH (20:50)
[2021-09-05] MEDS: polyethylene glycoL 3350 17 GM POWD.PACK PO SCH (07:46)
[2021-09-05] MEDS: Aspirin 81 MG TAB.CHEW PO SCH (07:47)
[2021-09-05] MEDS: carvediloL 6.25 MG TABLET PO SCH ×2 (07:47→17:48)
[2021-09-05] MEDS: *HR* Glimepiride 4 MG TABLET PO SCH (07:50)
[2021-09-05] MEDS: *HR* SitaGLIPtin 100 MG TABLET PO SCH (07:50)
[2021-09-05] MEDS: *HR* Metformin 500 MG TABLET PO SCH (07:50)
[2021-09-05] MEDS: Furosemide 40 MG TABLET PO SCH (07:50)
[2021-09-05] MEDS: *HR* Amiodarone 200 MG TABLET PO SCH (07:51)
[2021-09-05] MEDS: Insulin LISPRO 300 UNITS/3 ML VIAL SUBQ SCH ×3 (11:04→22:50)
[2021-09-05] MEDS: *HR* Rivaroxaban 10 MG TABLET PO SCH (17:48)
[2021-09-05] MEDS: Nystatin POWDER 30 GM BOTTLE TP SCH ×2 (18:05)
[2021-09-05] MEDS: Melatonin 3 MG TABLET PO SCH (22:49)
[2021-09-06] MEDS: Insulin LISPRO 300 UNITS/3 ML VIAL SUBQ SCH ×4 (08:01→22:36)
[2021-09-06] MEDS: carvediloL 6.25 MG TABLET PO SCH ×2 (08:11→17:39)
[2021-09-06] MEDS: *HR* Amiodarone 200 MG TABLET PO SCH (08:11)
[2021-09-06] MEDS: Furosemide 40 MG TABLET PO SCH (08:12)
[2021-09-06] MEDS: *HR* SitaGLIPtin 100 MG TABLET PO SCH (08:12)
[2021-09-06] MEDS: Aspirin 81 MG TAB.CHEW PO SCH (08:12)
[2021-09-06] MEDS: *HR* Metformin 500 MG TABLET PO SCH (08:12)
[2021-09-06] MEDS: *HR* Glimepiride 4 MG TABLET PO SCH (08:12)
[2021-09-06] MEDS: polyethylene glycoL 3350 17 GM POWD.PACK PO SCH (08:12)
[2021-09-06] MEDS: Nystatin POWDER 30 GM BOTTLE TP SCH ×2 (08:13→22:35)
[2021-09-06] MEDS: *HR* Rivaroxaban 10 MG TABLET PO SCH (17:39)
[2021-09-06] MEDS: Melatonin 3 MG TABLET PO SCH (22:36)
[2021-09-07 05:12] LABS: Eosinophils # 0.2 K/mcL (0.0-0.6); Eosinophils % 4.6 %; Hemoglobin 9.8 g/dL (12.9-16.9); Lymphocytes # 0.9 K/mcL (0.6-4.6); Lymphocytes % 22.8 %; Mean Corpuscular HGB Conc 31.6 g/dL (31.6-35.5); Mean Corpuscular Hemoglobin 30.6 pg (28.0-33.3); Mean Corpuscular Volume 96.9 fL (83.0-100.0); Mean Platelet Volume 10.3 fL (9.4-12.4); Monocytes # 0.4 K/mcL (0.0-1.3); Monocytes % 8.9 %; Neutrophils # 2.4 K/mcL (1.6-8.9); Platelet Count 147 K/mcL (140-400); Red Cell Distribution Width 16.6 % (11.5-14.5); Segmented Neutrophils % 61.7 %; White Blood Count 3.9 K/mcL (4.3-11.1)
[2021-09-07 05:26] LABS: BUN/Creatinine Ratio 21 (6-26); Blood Urea Nitrogen 25 mg/dL (8-23); Calcium 9.7 mg/dL (8.6-10.3); Carbon Dioxide 30 mEq/L (23-29); Chloride 102 mEq/L (98-107); Glucose 156 mg/dL (70-105); Osmolality,Calculated 296 (280-300); Potassium 3.9 mEq/L (3.5-5.1); Sodium 139 mEq/L (136-145); eGFR For African Americans > 60 (> 60); eGFR For Non-African Americans 59 (> 60)
[2021-09-07] MEDS: Aspirin 81 MG TAB.CHEW PO SCH (10:25)
[2021-09-07] MEDS: *HR* Glimepiride 4 MG TABLET PO SCH (10:25)
[2021-09-07] MEDS: Insulin LISPRO 300 UNITS/3 ML VIAL SUBQ SCH ×4 (10:26→21:26)
[2021-09-07] MEDS: *HR* Metformin 500 MG TABLET PO SCH (10:26)
[2021-09-07] MEDS: *HR* SitaGLIPtin 100 MG TABLET PO SCH (10:26)
[2021-09-07] MEDS: *HR* Amiodarone 200 MG TABLET PO SCH (10:26)
[2021-09-07] MEDS: Furosemide 40 MG TABLET PO SCH (10:26)
[2021-09-07] MEDS: carvediloL 6.25 MG TABLET PO SCH ×2 (10:26→17:14)
[2021-09-07] MEDS: polyethylene glycoL 3350 17 GM POWD.PACK PO SCH (10:27)
[2021-09-07] MEDS: Nystatin POWDER 30 GM BOTTLE TP SCH ×2 (10:27→21:25)
[2021-09-07] MEDS: *HR* Rivaroxaban 10 MG TABLET PO SCH (17:14)
[2021-09-07] MEDS: Melatonin 3 MG TABLET PO SCH (21:25)
[2021-09-08] MEDS: *HR* Metformin 500 MG TABLET PO SCH (07:19)
[2021-09-08] MEDS: Insulin LISPRO 300 UNITS/3 ML VIAL SUBQ SCH ×4 (07:19→20:13)
[2021-09-08] MEDS: *HR* Glimepiride 4 MG TABLET PO SCH (07:19)
[2021-09-08] MEDS: polyethylene glycoL 3350 17 GM POWD.PACK PO SCH (07:20)
[2021-09-08] MEDS: *HR* SitaGLIPtin 100 MG TABLET PO SCH (07:20)
[2021-09-08] MEDS: Aspirin 81 MG TAB.CHEW PO SCH (08:07)
[2021-09-08] MEDS: carvediloL 6.25 MG TABLET PO SCH ×2 (08:08→16:33)
[2021-09-08] MEDS: Furosemide 40 MG TABLET PO SCH (08:08)
[2021-09-08] MEDS: *HR* Amiodarone 200 MG TABLET PO SCH (08:08)
[2021-09-08] MEDS: Nystatin POWDER 30 GM BOTTLE TP SCH ×2 (08:11→20:45)
[2021-09-08] MEDS: *HR* Rivaroxaban 10 MG TABLET PO SCH (16:33)
[2021-09-08] MEDS: Melatonin 3 MG TABLET PO SCH (20:45)
[2021-09-09] MEDS: *HR* Metformin 500 MG TABLET PO SCH (07:57)
[2021-09-09] MEDS: *HR* SitaGLIPtin 100 MG TABLET PO SCH (07:57)
[2021-09-09] MEDS: Furosemide 40 MG TABLET PO SCH (07:57)
[2021-09-09] MEDS: carvediloL 6.25 MG TABLET PO SCH ×2 (07:57→15:38)
[2021-09-09] MEDS: *HR* Glimepiride 4 MG TABLET PO SCH (07:57)
[2021-09-09] MEDS: Aspirin 81 MG TAB.CHEW PO SCH (07:58)
[2021-09-09] MEDS: *HR* Amiodarone 200 MG TABLET PO SCH (07:58)
[2021-09-09] MEDS: Insulin LISPRO 300 UNITS/3 ML VIAL SUBQ SCH ×4 (07:58→20:07)
[2021-09-09] MEDS: polyethylene glycoL 3350 17 GM POWD.PACK PO SCH (07:59)
[2021-09-09] MEDS: Nystatin POWDER 30 GM BOTTLE TP SCH ×2 (07:59→20:07)
[2021-09-09] MEDS: *HR* Rivaroxaban 10 MG TABLET PO SCH (15:38)
[2021-09-09] MEDS: Melatonin 3 MG TABLET PO SCH (20:08)
[2021-09-10 06:11] LABS: Hemoglobin 9.5 g/dL (12.9-16.9); Mean Corpuscular HGB Conc 31.7 g/dL (31.6-35.5); Mean Corpuscular Hemoglobin 30.5 pg (28.0-33.3); Mean Corpuscular Volume 96.5 fL (83.0-100.0); Mean Platelet Volume 11.2 fL (9.4-12.4); Platelet Count 148 K/mcL (140-400); Red Blood Count 3.11 M/mcL (4.19-5.50); Red Cell Distribution Width 16.6 % (11.5-14.5); White Blood Count 3.9 K/mcL (4.3-11.1)
[2021-09-10 06:22] LABS: Alanine Aminotransferase 20 Units/L (7-52); Albumin 3.7 g/dL (3.5-5.7); Albumin/Globulin Ratio 1.8 (1.1-2.2); Alkaline Phosphatase 49 Units/L (34-104); Aspartate Amino Transferase 21 Units/L (13-39); BUN/Creatinine Ratio 20 (6-26); Bilirubin,Total 0.8 mg/dL (0.3-1.0); Blood Urea Nitrogen 25 mg/dL (8-23); Calcium 9.3 mg/dL (8.6-10.3); Carbon Dioxide 32 mEq/L (23-29); Chloride 99 mEq/L (98-107); Globulin 2.1 g/dL (2.4-3.5); Glucose 109 mg/dL (70-105); Magnesium 1.6 mg/dL (1.6-2.6); Osmolality,Calculated 291 (280-300); Potassium 3.8 mEq/L (3.5-5.1); Sodium 138 mEq/L (136-145); Total Protein 5.8 g/dL (6.4-8.9); eGFR For African Americans > 60 (> 60); eGFR For Non-African Americans 55 (> 60)
[2021-09-10] MEDS: Insulin LISPRO 300 UNITS/3 ML VIAL SUBQ SCH ×4 (07:20→20:57)
[2021-09-10] MEDS: Aspirin 81 MG TAB.CHEW PO SCH (07:29)
[2021-09-10] MEDS: carvediloL 6.25 MG TABLET PO SCH ×2 (07:30→17:16)
[2021-09-10] MEDS: Furosemide 40 MG TABLET PO SCH (07:30)
[2021-09-10] MEDS: *HR* SitaGLIPtin 100 MG TABLET PO SCH (07:30)
[2021-09-10] MEDS: *HR* Metformin 500 MG TABLET PO SCH (07:31)
[2021-09-10] MEDS: *HR* Amiodarone 200 MG TABLET PO SCH (07:31)
[2021-09-10] MEDS: polyethylene glycoL 3350 17 GM POWD.PACK PO SCH (07:31)
[2021-09-10] MEDS: *HR* Glimepiride 4 MG TABLET PO SCH (07:31)
[2021-09-10] MEDS: Nystatin POWDER 30 GM BOTTLE TP SCH ×2 (07:32→20:59)
[2021-09-10] MEDS: *HR* Rivaroxaban 10 MG TABLET PO SCH (17:16)
[2021-09-10] MEDS: Melatonin 3 MG TABLET PO SCH (21:03)
[2021-09-11] MEDS: Insulin LISPRO 300 UNITS/3 ML VIAL SUBQ SCH ×4 (07:18→20:23)
[2021-09-11] MEDS: *HR* SitaGLIPtin 100 MG TABLET PO SCH (08:52)
[2021-09-11] MEDS: polyethylene glycoL 3350 17 GM POWD.PACK PO SCH (08:52)
[2021-09-11] MEDS: Furosemide 40 MG TABLET PO SCH (08:53)
[2021-09-11] MEDS: carvediloL 6.25 MG TABLET PO SCH ×2 (08:53→16:52)
[2021-09-11] MEDS: *HR* Metformin 500 MG TABLET PO SCH (08:53)
[2021-09-11] MEDS: *HR* Amiodarone 200 MG TABLET PO SCH (08:54)
[2021-09-11] MEDS: *HR* Glimepiride 4 MG TABLET PO SCH (08:54)
[2021-09-11] MEDS: Aspirin 81 MG TAB.CHEW PO SCH (08:54)
[2021-09-11] MEDS: Nystatin POWDER 30 GM BOTTLE TP SCH ×2 (08:54→20:24)
[2021-09-11] MEDS: *HR* Rivaroxaban 10 MG TABLET PO SCH (16:52)
[2021-09-11] MEDS: Melatonin 3 MG TABLET PO SCH (20:23)
[2021-09-12] MEDS: Insulin LISPRO 300 UNITS/3 ML VIAL SUBQ SCH ×4 (07:38→20:21)
[2021-09-12] MEDS: *HR* SitaGLIPtin 100 MG TABLET PO SCH (07:59)
[2021-09-12] MEDS: Furosemide 40 MG TABLET PO SCH (07:59)
[2021-09-12] MEDS: Aspirin 81 MG TAB.CHEW PO SCH (07:59)
[2021-09-12] MEDS: *HR* Metformin 500 MG TABLET PO SCH (07:59)
[2021-09-12] MEDS: carvediloL 6.25 MG TABLET PO SCH ×2 (07:59→16:14)
[2021-09-12] MEDS: *HR* Amiodarone 200 MG TABLET PO SCH (08:00)
[2021-09-12] MEDS: *HR* Glimepiride 4 MG TABLET PO SCH (08:00)
[2021-09-12] MEDS: polyethylene glycoL 3350 17 GM POWD.PACK PO SCH (08:00)
[2021-09-12] MEDS: Nystatin POWDER 30 GM BOTTLE TP SCH ×2 (11:09→20:49)
[2021-09-12] MEDS: *HR* Rivaroxaban 10 MG TABLET PO SCH (16:14)
[2021-09-12] MEDS: Melatonin 3 MG TABLET PO SCH (20:50)
[2021-09-13 04:50] LABS: Hematocrit 32.8 % (37.5-50.1); Hemoglobin 10.3 g/dL (12.9-16.9); Mean Corpuscular HGB Conc 31.4 g/dL (31.6-35.5); Mean Corpuscular Hemoglobin 30.8 pg (28.0-33.3); Mean Corpuscular Volume 98.2 fL (83.0-100.0); Mean Platelet Volume 11.2 fL (9.4-12.4); Platelet Count 154 K/mcL (140-400); Red Blood Count 3.34 M/mcL (4.19-5.50); Red Cell Distribution Width 16.7 % (11.5-14.5); White Blood Count 3.9 K/mcL (4.3-11.1)
[2021-09-13 05:07] LABS: Alanine Aminotransferase 20 Units/L (7-52); Albumin 3.8 g/dL (3.5-5.7); Albumin/Globulin Ratio 1.7 (1.1-2.2); Alkaline Phosphatase 48 Units/L (34-104); Aspartate Amino Transferase 22 Units/L (13-39); BUN/Creatinine Ratio 22 (6-26); Bilirubin,Total 0.8 mg/dL (0.3-1.0); Blood Urea Nitrogen 26 mg/dL (8-23); Calcium 9.2 mg/dL (8.6-10.3); Carbon Dioxide 29 mEq/L (23-29); Chloride 104 mEq/L (98-107); Globulin 2.3 g/dL (2.4-3.5); Glucose 72 mg/dL (70-105); Magnesium 1.8 mg/dL (1.6-2.6); Osmolality,Calculated 293 (280-300); Sodium 140 mEq/L (136-145); Total Protein 6.1 g/dL (6.4-8.9); eGFR For African Americans > 60 (> 60); eGFR For Non-African Americans > 60 (> 60)
[2021-09-13] MEDS: Insulin LISPRO 300 UNITS/3 ML VIAL SUBQ SCH ×4 (07:35→22:18)
[2021-09-13] MEDS: Aspirin 81 MG TAB.CHEW PO SCH (07:37)
[2021-09-13] MEDS: *HR* Glimepiride 4 MG TABLET PO SCH (07:37)
[2021-09-13] MEDS: *HR* Amiodarone 200 MG TABLET PO SCH (07:37)
[2021-09-13] MEDS: *HR* Metformin 500 MG TABLET PO SCH (07:37)
[2021-09-13] MEDS: *HR* SitaGLIPtin 100 MG TABLET PO SCH (07:38)
[2021-09-13] MEDS: carvediloL 6.25 MG TABLET PO SCH ×2 (07:38→17:08)
[2021-09-13] MEDS: Furosemide 40 MG TABLET PO SCH (07:38)
[2021-09-13] MEDS ORDERED: *HR* Amiodarone 200 MG TABLET PO SCH (09:00)
[2021-09-13] MEDS: polyethylene glycoL 3350 17 GM POWD.PACK PO SCH (09:58)
[2021-09-13] MEDS: Nystatin POWDER 30 GM BOTTLE TP SCH ×2 (09:58→19:33)
[2021-09-13] MEDS: *HR* Rivaroxaban 10 MG TABLET PO SCH (17:08)
[2021-09-13] MEDS: Melatonin 3 MG TABLET PO SCH (19:32)
[2021-09-14] MEDS: *HR* SitaGLIPtin 100 MG TABLET PO SCH (07:46)
[2021-09-14] MEDS: *HR* Amiodarone 200 MG TABLET PO SCH (07:46)
[2021-09-14] MEDS: Aspirin 81 MG TAB.CHEW PO SCH (07:46)
[2021-09-14] MEDS: *HR* Glimepiride 4 MG TABLET PO SCH (07:46)
[2021-09-14] MEDS: carvediloL 6.25 MG TABLET PO SCH ×2 (07:46→16:41)
[2021-09-14] MEDS: Furosemide 40 MG TABLET PO SCH (07:47)
[2021-09-14] MEDS: *HR* Metformin 500 MG TABLET PO SCH (07:47)
[2021-09-14] MEDS: polyethylene glycoL 3350 17 GM POWD.PACK PO SCH (07:47)
[2021-09-14] MEDS: Insulin LISPRO 300 UNITS/3 ML VIAL SUBQ SCH ×4 (07:47→20:45)
[2021-09-14] MEDS: Nystatin POWDER 30 GM BOTTLE TP SCH ×2 (12:12→20:45)
[2021-09-14] MEDS: *HR* Rivaroxaban 10 MG TABLET PO SCH (16:41)
[2021-09-14] MEDS: Melatonin 3 MG TABLET PO SCH (20:45)
[2021-09-15] MEDS: Insulin LISPRO 300 UNITS/3 ML VIAL SUBQ SCH ×4 (07:27→19:32)
[2021-09-15] MEDS: Furosemide 40 MG TABLET PO SCH (07:41)
[2021-09-15] MEDS: *HR* SitaGLIPtin 100 MG TABLET PO SCH (07:41)
[2021-09-15] MEDS: Aspirin 81 MG TAB.CHEW PO SCH (07:41)
[2021-09-15] MEDS: *HR* Metformin 500 MG TABLET PO SCH (07:41)
[2021-09-15] MEDS: *HR* Glimepiride 4 MG TABLET PO SCH (07:41)
[2021-09-15] MEDS: *HR* Amiodarone 200 MG TABLET PO SCH (07:41)
[2021-09-15] MEDS: carvediloL 6.25 MG TABLET PO SCH ×2 (07:41→16:14)
[2021-09-15] MEDS: Nystatin POWDER 30 GM BOTTLE TP SCH ×2 (07:42→22:08)
[2021-09-15] MEDS: polyethylene glycoL 3350 17 GM POWD.PACK PO SCH (07:42)
[2021-09-15] MEDS: *HR* Rivaroxaban 10 MG TABLET PO SCH (16:14)
[2021-09-15] MEDS: Melatonin 3 MG TABLET PO SCH (22:08)
[2021-09-16] MEDS: *HR* Metformin 500 MG TABLET PO SCH (07:32)
[2021-09-16] MEDS: carvediloL 6.25 MG TABLET PO SCH ×2 (07:32→16:20)
[2021-09-16] MEDS: *HR* SitaGLIPtin 100 MG TABLET PO SCH (07:33)
[2021-09-16] MEDS: Furosemide 40 MG TABLET PO SCH (07:33)
[2021-09-16] MEDS: Insulin LISPRO 300 UNITS/3 ML VIAL SUBQ SCH ×4 (07:33→20:11)
[2021-09-16] MEDS: *HR* Amiodarone 200 MG TABLET PO SCH (07:33)
[2021-09-16] MEDS: *HR* Glimepiride 4 MG TABLET PO SCH (07:33)
[2021-09-16] MEDS: Aspirin 81 MG TAB.CHEW PO SCH (07:33)
[2021-09-16] MEDS: Nystatin POWDER 30 GM BOTTLE TP SCH ×2 (07:35→20:12)
[2021-09-16] MEDS: polyethylene glycoL 3350 17 GM POWD.PACK PO SCH (07:41)
[2021-09-16] MEDS: *HR* Rivaroxaban 10 MG TABLET PO SCH (16:20)
[2021-09-16] MEDS: Melatonin 3 MG TABLET PO SCH (20:11)
[2021-09-17 07:02] VITALS: BP 117/70; PULSE 59; RESP 15; TEMP 97.6; O2SAT 97
[2021-09-17] MEDS: Insulin LISPRO 300 UNITS/3 ML VIAL SUBQ SCH ×2 (08:47→11:47)
[2021-09-17] MEDS: Aspirin 81 MG TAB.CHEW PO SCH (08:49)
[2021-09-17] MEDS: *HR* Amiodarone 200 MG TABLET PO SCH (08:49)
[2021-09-17] MEDS: Furosemide 40 MG TABLET PO SCH (08:49)
[2021-09-17] MEDS: *HR* SitaGLIPtin 100 MG TABLET PO SCH (08:49)
[2021-09-17] MEDS: *HR* Metformin 500 MG TABLET PO SCH (08:49)
[2021-09-17] MEDS: *HR* Glimepiride 4 MG TABLET PO SCH (08:49)
[2021-09-17] MEDS: carvediloL 6.25 MG TABLET PO SCH (08:49)
[2021-09-17] MEDS: polyethylene glycoL 3350 17 GM POWD.PACK PO SCH (08:50)
[2021-09-17] MEDS: Nystatin POWDER 30 GM BOTTLE TP SCH (08:50)
== END 2021-09-17 15:59 | disposition home health service (06) ==
LOC: INPGRE 14:47
PROVIDERS: ADMIT Family Medicine; ATTEND Family Medicine